=== PATIENT | male | born 1980 | race Two or more races ===

== ENCOUNTER → 2022-04-15 | Outpatient (CLI) | payer OTHER | END | disposition home or self-care (01) | LOC: RADPV 08:07 | PROVIDERS: ATTEND Chiropractor | DX: I08.1 Rheumatic disorders of both mitral and tricuspid valves (principal); M47.817 Spondylosis without myelopathy or radiculopathy, lumbosacral region; M41.87 Other forms of scoliosis, lumbosacral region; S62.609A Fracture of unspecified phalanx of unspecified finger, initial encounter for closed fracture; I20.9 Angina pectoris, unspecified; M54.9 Dorsalgia, unspecified; X58.XXXA Exposure to other specified factors, initial encounter; Y93.89 Activity, other specified; Y92.89 Other specified places as the place of occurrence of the external cause; Y99.8 Other external cause status | CPT/HCPCS: 72100; 93306; 73120-TC ==